=== PATIENT | male | born 1960 | race Caucasian/White ===

== ENCOUNTER 2020-01-31 13:00 | Outpatient (CLI) | payer OTHER | END 2020-01-31 13:01 | disposition home or self-care (01) | LOC: DTY/OP 13:00 | PROVIDERS: ATTEND Family Medicine | DX: E11.65 Type 2 diabetes mellitus with hyperglycemia (principal); I10 Essential (primary) hypertension; E66.01 Morbid (severe) obesity due to excess calories; E78.00 Pure hypercholesterolemia, unspecified; R74.8 Abnormal levels of other serum enzymes | CPT/HCPCS: 97802 ==

== ENCOUNTER 2024-01-17 15:12 | Outpatient (CLI) | payer OTHER | END 2024-01-17 15:13 | disposition home or self-care (01) | LOC: BICRAD 15:12 | PROVIDERS: ATTEND Preventive Medicine Occupational Medicine | DX: M25.561 Pain in right knee (principal); M25.562 Pain in left knee; M54.2 Cervicalgia; M43.26 Fusion of spine, lumbar region; M47.817 Spondylosis without myelopathy or radiculopathy, lumbosacral region; M17.12 Unilateral primary osteoarthritis, left knee; M47.812 Spondylosis without myelopathy or radiculopathy, cervical region; M50.30 Other cervical disc degeneration, unspecified cervical region; M48.8X2 Other specified spondylopathies, cervical region | CPT/HCPCS: 72040; 72100 ==

== ENCOUNTER 2025-03-27 10:09 | Outpatient (CLI) | payer BC ==
[2025-03-27 10:45] LABS: Estimated GFR - POC 37.0
== END 2025-03-27 10:10 | disposition home or self-care (01) ==
LOC: SCSMRI 10:09
PROVIDERS: ATTEND Orthopaedic Surgery
DX: M79.89 Other specified soft tissue disorders (principal); S80.11XA Contusion of right lower leg, initial encounter
CPT/HCPCS: 36415; 82565